=== PATIENT | female | born 1995 | race Caucasian/White ===

== ENCOUNTER 2018-03-20 20:42 | Emergency (ER) | payer OTHER ==
[2018-03-20 21:30] LABS: Urine Blood NEGATIVE (NEG); Urine Glucose NEGATIVE (NEG); Urine Protein 1+ (NEG); Urine Specific Gravity >1.030 (1.005-1.030)
[2018-03-20] MEDS ORDERED: NA CHLORIDE 0.9% 1,000 ML ONE (21:55)
[2018-03-20] MEDS ORDERED: ACETAMINOPHEN 500 MG TAB ONE (21:55)
[2018-03-20 22:04] LABS: Absolute Lymphocytes (CBC) 1.3 K/uL (0.7-4.9); Absolute Monocytes 0.5 K/uL (0.1-1.3); Absolute Neutrophil 11.4 K/uL (1.8-8.0); Basophils % 0.1 % (0-1.3); Eosinophils % 0.1 % (0-4.4); Hematocrit 36.5 % (36.0-45.0); Lymphocytes % 9.7 % (15.3-44.8); MCH 27.5 pg (27.0-35.0); MCV 82.7 fL (80-100); MPV 8.1 fL (7.6-11.3); Monocytes % 4.1 % (3.3-12.3); RBC Red Blood Cell Count 4.41 M/uL (3.86-4.86)
[2018-03-20 22:15] LABS: Bicarbonate 19 mEq/L (21-31); Glucose Level 94 mg/dL (65-120); Potassium 3.4 mEq/L (3.6-5.0); Sodium Level 136 mEq/L (135-145)
[2018-03-20 22:16] LABS: BUN Blood Urea Nitrogen 12 mg/dL (6-20)
[2018-03-20 23:22] LABS: Blood Morphology Comment NOT SEEN (NOT SEEN); Platelet Estimate ADEQ
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
--- NOTE | 2018-03-21 08:20 | RAD REPORT ---
EXAM DESCRIPTION: US - Transvaginal OB - 03/20/2018 11:05 pm CLINICAL HISTORY: Pelvic pain and cramping. COMPARISON: None. FINDINGS: A single gestational sac is seen within the uterus. Within the sac is a single pole with crown-rump length measuring 6 mm corresponding to 6 weeks 3 days gestational age. Cardiac activity is normal measuring 126 BPM. No unexpected findings. IMPRESSION: Single live early intrauterine gestation as detailed above.
== END 2018-03-21 00:14 | disposition home or self-care (01) ==
LOC: ER 20:42
DX: O20.0 Threatened abortion (principal); M54.5 Low back pain; Y04.8XXA Assault by other bodily force, initial encounter; Y93.89 Activity, other specified; Y92.89 Other specified places as the place of occurrence of the external cause
CPT/HCPCS: 36415; 76817; 80048; 81003; 81025; 85025; 86900; 86901; 96360; 96361; 99284; J7030

== ENCOUNTER 2018-05-18 22:35 | Emergency (ER) | payer OTHER ==
[2018-05-19 00:04] LABS: Absolute Lymphocytes (CBC) 2.3 K/uL (0.7-4.9); Absolute Monocytes 0.6 K/uL (0.1-1.3); Absolute Neutrophil 5.1 K/uL (1.8-8.0); Basophils % 0.5 % (0-1.3); Hematocrit 39.8 % (36.0-45.0); Lymphocytes % 27.7 % (15.3-44.8); MCH 28.4 pg (27.0-35.0); MCV 83.9 fL (80-100); Monocytes % 7.6 % (3.3-12.3); RBC Red Blood Cell Count 4.75 M/uL (3.86-4.86)
[2018-05-19 00:04] LABS: Urine Glucose TRACE (NEG); Urine Specific Gravity 1.015 (1.005-1.030)
[2018-05-19 00:05] LABS: Urine Blood 3+ (NEG); Urine Protein 3+ (NEG)
[2018-05-19] MEDS ORDERED: NA CHLORIDE 0.9% 1,000 ML ONE (00:08)
[2018-05-19 00:32] LABS: Urine Bacteria <20 /HPF (<20); Urine Culture Reflex Order REFLEXED; Urine RBC TNTC /HPF (NONE SEEN)
[2018-05-19] MEDS ORDERED: CEFTRIAXONE/SWI 1gm 1 GM/10 ML SYR ONE (00:35)
[2018-05-19] MEDS ORDERED: KETOROLAC 30 MG/ML INJ ONE (00:35)
[2018-05-19 00:42] LABS: BUN Blood Urea Nitrogen 12 mg/dL (7-18); Bicarbonate 28 mmol/L (21-32); Glucose Level 86 mg/dL (74-106); Potassium 3.5 mmol/L (3.5-5.1); Sodium Level 143 mmol/L (136-145)
--- NOTE | 2018-05-19 01:56 | ER ---
Nurse's Notes [facility] Name: Damaris Roque Age: 22 yrs Sex: Female : 1995 Arrival Date: 05/18/2018 Time: 22:37 Bed 27 Private MD: Diagnosis: Dysmenorrhea, unspecified Presentation: 05/18 22:45 Presenting complaint: Patient states: Pt reports she woke up last night with vaginal ea bleeding, reports she went through 8 tampons today. Stated she had an a couple of months ago and had not had a period since then. Transition of care: patient was not received from another setting of care. Onset of symptoms was May 18, 2018. Risk Assessment: Do you want to hurt yourself or someone else? Patient reports no desire to harm self or others. Initial Sepsis Screen: Does the patient meet any 2 criteria? No. Patient's initial sepsis screen is negative. Does the patient have a suspected source of infection? No. Patient's initial sepsis screen is negative. Care prior to arrival: None. 22:45 Method Of Arrival: Ambulatory ea 22:45 Acuity: JAYMIE 2 ea Triage Assessment: 23:20 General: Appears uncomfortable, Behavior is calm, cooperative, appropriate for age. ea Pain: Denies pain. : Reports vaginal bleeding that is heavy flow since yesterday. DETECTIVE [place]: 22:46 LMP 05/18/2018 ea 05/19 01:24 1 snw Historical: - Allergies: 05/18 23:19 No Known Allergies; ea - Home Meds: 23:19 None [Active]; ea - PMHx: 23:19 None; ea - PSHx: 23:19 c section; ea - Immunization history:: Adult Immunizations up to date. - Social history:: Smoking status: Patient uses tobacco products, denies chronic smoking, but will smoke occasionally. - Ebola Screening: : No symptoms or risks identified at this time. Screenin:21 Abuse screen: Denies threats or abuse. Nutritional screening: No deficits noted. ea Tuberculosis screening: No symptoms or risk factors identified. Fall Risk None identified. Assessment: 23:00 General: Appears uncomfortable, well groomed, well developed, well nourished, Behavior tl3 is calm, cooperative, appropriate for age. Pain: Complains of pain in abdomen. Neuro: Level of Consciousness is awake, alert, obeys commands, Oriented to person, place, time, situation, Appropriate for age. Cardiovascular: Patient's skin is warm and dry. Respiratory: Airway is patent Respiratory effort is even, unlabored, Respiratory pattern is regular, symmetrical. GI: Abdomen is round. : Urine is joe blood, Reports cramping, since yesterday vaginal bleeding that is bright red, heavy flow has went through eight pads/tampons today. : Reports pt reports seeing OB in March, had around that same time. EENT: No signs and/or symptoms were reported regarding the EENT system. Derm: No signs and/or symptoms reported regarding the dermatologic system. Musculoskeletal: No signs and/or symptoms reported regarding the musculoskeletal system. 05/19 01:04 Reassessment: Patient appears in no apparent distress at this time. No changes from tl3 previously documented assessment. Patient and/or family updated on plan of care and expected duration. Pain level reassessed. Patient is alert, oriented x 3, equal unlabored respirations, skin warm/dry/pink. 02:12 Reassessment: Patient appears in no apparent distress at this time. Patient and/or tl2 family updated on plan of care and expected duration. Pain level reassessed. Patient is alert, oriented x 3, equal unlabored respirations, skin warm/dry/pink. Pt verbalized understanding of discharge instructions, need for follow up and prescription usage. Vital Signs: 05/18 22:46 BP 113 / 90; Pulse 96; Resp 18; Temp 98.1(O); Pulse Ox 99% on R/A; Weight 61.23 kg; ea Height 5 ft. (152.40 cm); Pain 0/10; 23:00 BP 118 / 92; Pulse 95; Resp 18; Pulse Ox 98% on R/A; tl3 05/19 01:04 BP 89 / 65; Pulse 72; Resp 18; Pulse Ox 97% on R/A; tl3 01:39 BP 98 / 67 Supine; Pulse 87; tl2 01:39 BP 109 / 69 Sitting; Pulse 87; tl2 01:39 BP 109 / 68 Standing; Pulse 90; tl2 02:14 BP 91 / 57; Pulse 95; Resp 18; Pulse Ox 98% on R/A; tl2 05/18 22:46 Body Mass Index 26.37 (61.23 kg, 152.40 cm) ED Course: 05/18 22:37 Patient arrived in ED. am2 22:45 Arm band placed on right wrist. Patient placed in an exam room, on a stretcher, on ea pulse oximetry. 22:46 Patient has correct armband on for positive identification. Bed in low position. Call ea light in reach. Side rails up X2. 23:00 Pulse ox on. NIBP on. Door closed. Noise minimized. Lights dimmed. Warm blanket given. tl3 23:00 No provider procedures requiring assistance completed. Initial lab(s) drawn, by wy, tl3 sent to lab. Urine collected: clean catch specimen, joe blood. Inserted saline lock: 22 gauge in right antecubital area, using aseptic technique. Blood collected. 23:17 Sidra Ramirez, [facility] is Primary Nurse. tl3 23:19 Triage completed. ea 23:35 Sanjana Piedra FNP-C is [facility]. snw 23:35 Raciel Ortez MD is Attending Physician. snw 05/19 02:14 IV discontinued, intact, bleeding controlled, No redness/swelling at site. Pressure tl2 dressing applied. Administered Medications: 00:03 Drug: NS 0.9% 1000 ml Route: IV; Rate: 1 bolus; Site: right antecubital; Delivery: tl3 Primary tubing; 01:11 Follow up: IV Status: Completed infusion; IV Intake: 1000ml tl3 00:36 Drug: TORadol 30 mg Route: IVP; Infused Over: 3 mins; Site: right antecubital; tl3 01:05 Follow up: Response: Pain is decreased tl3 00:37 Drug: Rocephin 1 grams Route: IV; Rate: calculated rate; Site: right antecubital; tl3 Delivery: Primary tubing; 01:06 Follow up: IV Status: Completed infusion; IV Intake: 20ml tl3 Intake: 01:06 IV: 20ml; Total: 20ml. tl3 01:11 IV: 1000ml; Total: 1020ml. tl3 Outcome: 01:55 Discharge ordered by . snw 02:14 Discharged to home ambulatory. tl2 02:14 Condition: stable 02:14 Discharge instructions given to patient, Instructed on discharge instructions, follow up and referral plans. medication usage, Demonstrated understanding of instructions, follow-up care, medications, Prescriptions given X 2. 02:15 Patient left the ED. tl2 Addendum: 05/22/2018 10:55 Addendum: Culture Results: Positive urine culture. Phone call Attempt #1 No answer, not s s a working number Certified letter sent to listed address for patient. Signatures: Sanjana Piedra, TOWER EQUIPMENT INSTALLER-C TOWER EQUIPMENT INSTALLER-Csnw Rula Farooq RN RN Ibeth Grady RN RN tl2 Yamilet Tanner Elena, RN RN ea Lowrey, Tammy, RN RN tl3 Corrections: (The following items were deleted from the chart) 05/19 02:14 02:12 Reassessment: Patient appears in no apparent distress at this time. Patient tl2 and/or family updated on plan of care and expected duration. Pain level reassessed. Patient is alert, oriented x 3, equal unlabored respirations, skin warm/dry/pink. tl2
--- NOTE | 2018-05-19 01:56 | EDPHYS ---
Physician Documentation [facility] Name: Damaris Roque Age: 22 yrs Sex: Female : 1995 Arrival Date: 05/18/2018 Time: 22:37 Bed 27 Private MD: TAWANDA Physician Raciel Ortez HPI: 05/19 01:24 This 22 yrs old Female presents to ER via Ambulatory with complaints of snw Vaginal Bleeding. 01:24 The patient presents with vaginal bleeding that is heavy. Onset: The symptoms/episode snw began/occurred suddenly, 2 day(s) ago, and became persistent. Modifying factors: The symptoms are alleviated by nothing. Associated signs and symptoms: The patient has no apparent associated signs or symptoms. Severity of symptoms: At their worst the symptoms were moderate, severe. The patient has not experienced similar symptoms in the past. recent , 1st period since. 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 - Social history:: Smoking status: Patient uses tobacco products, denies chronic smoking, but will smoke occasionally. - Ebola Screening: : No symptoms or risks identified at this time. ROS: 05/19 01:24 Constitutional: Negative for fever, chills, and weight loss, Eyes: Negative for injury, snw pain, redness, and discharge, ENT: Negative for injury, pain, and discharge, Neck: Negative for injury, pain, and swelling, Cardiovascular: Negative for chest pain, palpitations, and edema, Respiratory: Negative for shortness of breath, cough, wheezing, and pleuritic chest pain, Abdomen/GI: Negative for abdominal pain, nausea, vomiting, diarrhea, and constipation, Back: Negative for injury and pain, MS/Extremity: Negative for injury and deformity, Skin: Negative for injury, rash, and discoloration, Neuro: Negative for headache, weakness, numbness, tingling, and seizure. : Positive for vaginal bleeding. Exam: 01:23 Constitutional: This is a well developed, well nourished patient who is awake, alert, snw and in no acute distress. Head/Face: Normocephalic, atraumatic. Eyes: Pupils equal round and reactive to light, extra-ocular motions intact. Lids and lashes normal. Conjunctiva and sclera are non-icteric and not injected. Cornea within normal limits. Periorbital areas with no swelling, redness, or edema. ENT: Nares patent. No nasal discharge, no septal abnormalities noted. Tympanic membranes are normal and external auditory canals are clear. Oropharynx with no redness, swelling, or masses, exudates, or evidence of obstruction, uvula midline. Mucous membranes moist. Neck: Trachea midline, no thyromegaly or masses palpated, and no cervical lymphadenopathy. Supple, full range of motion without nuchal rigidity, or vertebral point tenderness. No Meningismus. Chest/axilla: Normal chest wall appearance and motion. Nontender with no deformity. No lesions are appreciated. Cardiovascular: Regular rate and rhythm with a normal S1 and S2. No gallops, murmurs, or rubs. Normal PMI, no JVD. No pulse deficits. Respiratory: Lungs have equal breath sounds bilaterally, clear to auscultation and percussion. No rales, rhonchi or wheezes noted. No increased work of breathing, no retractions or nasal flaring. Abdomen/GI: Soft, non-tender, with normal bowel sounds. No distension or tympany. No guarding or rebound. No evidence of tenderness throughout. Back: No spinal tenderness. No costovertebral tenderness. Full range of motion. Skin: Warm, dry with normal turgor. Normal color with no rashes, no lesions, and no evidence of cellulitis. MS/ Extremity: Pulses equal, no cyanosis. Neurovascular intact. Full, normal range of motion. Neuro: Awake and alert, GCS 15, oriented to person, place, time, and situation. Cranial nerves II-XII grossly intact. Motor strength 5/5 in all extremities. Sensory grossly intact. Cerebellar exam normal. Normal gait. Vital Signs: 05/18 22:46 BP 113 / 90; Pulse 96; Resp 18; Temp 98.1(O); Pulse Ox 99% on R/A; Weight 61.23 kg; ea Height 5 ft. (152.40 cm); Pain 0/10; 23:00 BP 118 / 92; Pulse 95; Resp 18; Pulse Ox 98% on R/A; tl3 07 01:04 BP 89 / 65; Pulse 72; Resp 18; Pulse Ox 97% on R/A; tl3 01:39 BP 98 / 67 Supine; Pulse 87; tl2 01:39 BP 109 / 69 Sitting; Pulse 87; tl2 01:39 BP 109 / 68 Standing; Pulse 90; tl2 02:14 BP 91 / 57; Pulse 95; Resp 18; Pulse Ox 98% on R/A; tl2 05/18 22:46 Body Mass Index 26.37 (61.23 kg, 152.40 cm) ea MDM: 05/18 23:44 Patient medically screened. [facility] 05/19 02:07 Data reviewed: vital signs, nurses notes. Data interpreted: Pulse oximetry: on room air snw is 97 %. Interpretation: normal. Counseling: I had a detailed discussion with the patient and/or guardian regarding: the historical points, exam findings, and any diagnostic results supporting the discharge/admit diagnosis, lab results, the need for outpatient follow up, to return to the emergency department if symptoms worsen or persist or if there are any questions or concerns that arise at home. Special discussion: Based on the history and exam findings, there is no indication for further emergent testing or inpatient evaluation. I discussed with the patient/guardian the need to see the OB Gyne specialist for further evaluation of the symptoms. I discussed with the patient/guardian the need to see the primary care provider for further evaluation of the symptoms. 05/18 23:35 Order name: UA MICROSCOPIC; Complete Time: 00:50 3 05/18 23:36 Order name: Abo/rh Typing; Complete Time: 00:24 snw 05/18 23:36 Order name: Basic Metabolic Panel; Complete Time: 00:50 snw 05/18 23:36 Order name: CBC with Diff; Complete Time: 00:21 snw 05/18 23:45 Order name: Urine Dipstick--Ancillary (enter results) ms 05/18 23:45 Order name: Urine --Ancillary (enter results) ms 05/18 23:36 Order name: Urine Test (obtain specimen); Complete Time: 23:52 snw 05/18 23:36 Order name: IV Saline Lock; Complete Time: 23:52 snw 05/18 23:36 Order name: Labs collected and sent; Complete Time: 23:52 snw 05/18 23:36 Order name: NPO; Complete Time: 23:52 snw 05/19 00:32 Order name: Urine Culture [facility] 05/18 23:36 Order name: Urine Dipstick-Ancillary (obtain specimen); Complete Time: 23:52 snw 05/19 01:22 Order name: Orthostatics; Complete Time: 01:40 snw Administered Medications: 00:03 Drug: NS 0.9% 1000 ml Route: IV; Rate: 1 bolus; Site: right antecubital; Delivery: tl3 Primary tubing; 01:11 Follow up: IV Status: Completed infusion; IV Intake: 1000ml tl3 00:36 Drug: TORadol 30 mg Route: IVP; Infused Over: 3 mins; Site: right antecubital; tl3 01:05 Follow up: Response: Pain is decreased tl3 00:37 Drug: Rocephin 1 grams Route: IV; Rate: calculated rate; Site: right antecubital; tl3 Delivery: Primary tubing; 01:06 Follow up: IV Status: Completed infusion; IV Intake: 20ml tl3 Disposition: 08:25 Co-signature as Attending Physician, Raciel Ortez MD I agree with the assessment and carol plan of care. Disposition: 05/19/18 01:55 Discharged to Home. Impression: Dysmenorrhea, unspecified. - Condition is Stable. - Discharge Instructions: Dysmenorrhea. - Prescriptions for Vitamin 27- 0.8 mg Oral Tablet - take 1 tablet by ORAL route once daily; 60 tablet. Diclofenac Sodium 75 mg Oral Tablet Sustained Release - take 1 tablet by ORAL route 2 times per day; 30 tablet. - Medication Reconciliation Form, Thank You Letter, Antibiotic Education, Prescription Opioid Use, Work release form form. - Follow up: Emergency Department; When: As needed; Reason: Worsening of condition. Follow up: Private Physician; When: 1 - 2 days; Reason: Recheck today's complaints, Continuance of care, Re-evaluation by your physician. Signatures: Dispatcher [employer] Raciel Hillman MD MD cha Therrien, Shelly, AUDIT OFFICER-C AUDIT OFFICER-Csnw Ibeth Harris RN RN tl2 Chyna Correia RN Sidra Mata ea, RN RN tl3 Corrections: (The following items were deleted from the chart) 02:15 01:55 05/19/2018 01:55 Discharged to Home. Impression: Dysmenorrhea, unspecified. tl2 Condition is Stable. Forms are Medication Reconciliation Form, Thank You Letter, Antibiotic Education, Prescription Opioid Use. Follow up: Emergency Department; When: As needed; Reason: Worsening of condition. Follow up: Private Physician; When: 1 - 2 days; Reason: Recheck today's complaints, Continuance of care, Re-evaluation by your physician. snw
== END 2018-05-19 02:15 | disposition home or self-care (01) ==
LOC: ER 22:35
DX: N94.6 Dysmenorrhea, unspecified (principal); Z72.0 Tobacco use
CPT/HCPCS: 36415; 80048; 81003; 81015; 81025; 85025; 86900; 86901; 87077; 87086; 87088; 87186; 96361; 96365; 96375; 99284; J0696; J7030

== ENCOUNTER 2018-10-30 20:02 | Emergency (ER) | payer OTHER, SELFPAY ==
[2018-10-30] MEDS ORDERED: IBUPROFEN 400 MG TAB ONE (20:41)
[2018-10-30] MEDS ORDERED: IBUPROFEN 200 MG TAB PO ONE (20:41)
[2018-10-30 21:53] LABS: Urine Blood NEGATIVE (NEG); Urine Glucose NEGATIVE (NEG); Urine Protein NEGATIVE (NEG)
[2018-10-30 22:14] LABS: Urine Bacteria <20 /HPF (<20); Urine RBC <5 /HPF (NONE SEEN)
[2018-10-30 22:15] LABS: Urine Culture Reflex Order NOT NEEDED
[2018-10-30] MEDS ORDERED: NA CHLORIDE 0.9% 1,000 ML ONE (22:49)
[2018-10-30] MEDS ORDERED: OSELTAMIVIR 75 MG CAP ONE (22:49)
[2018-10-30] MEDS ORDERED: KETOROLAC 30 MG/ML INJ ONE (22:49)
--- NOTE | 2018-10-30 23:32 | EDPHYS ---
Physician Documentation [facility] Name: Damaris Roque Age: 22 yrs Sex: Female : 1995 Arrival Date: 10/30/2018 Time: 20:05 Bed 18 Private MD: ED Physician Dmitry Coulter HPI: 10/30 23:36 This 22 yrs old Female presents to ER via Ambulatory with complaints of snw Chills body ache. 23:36 Onset: The symptoms/episode began/occurred suddenly, last night. Associated signs and snw symptoms: Pertinent positives: fever, Pertinent negatives: chest pain, congestion, constipation, cough, diarrhea, dysuria. Modifying factors: The patient symptoms are alleviated by nothing. The patient has not experienced similar symptoms in the past. The patient has not recently seen a physician. 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 - Social history:: Smoking status: Patient/guardian denies using tobacco. - Ebola Screening: : No symptoms or risks identified at this time. ROS: 23:34 Eyes: Negative for injury, pain, redness, and discharge, ENT: Negative for injury, snw pain, and discharge, Neck: Negative for injury, pain, and swelling, Cardiovascular: Negative for chest pain, palpitations, and edema, Respiratory: Negative for shortness of breath, cough, wheezing, and pleuritic chest pain, Abdomen/GI: Negative for abdominal pain, nausea, vomiting, diarrhea, and constipation, Back: Negative for injury and pain, : Negative for injury, bleeding, discharge, and swelling, MS/Extremity: Negative for injury and deformity, Skin: Negative for injury, rash, and discoloration, Neuro: Negative for headache, weakness, numbness, tingling, and seizure. 23:34 Constitutional: Positive for body aches, chills, fatigue, fever, malaise, poor PO intake. Exam: 23:34 Head/Face: Normocephalic, atraumatic. Eyes: Pupils equal round and reactive to light, snw extra-ocular motions intact. Lids and lashes normal. Conjunctiva and sclera are non-icteric and not injected. Cornea within normal limits. Periorbital areas with no swelling, redness, or edema. ENT: Nares patent. No nasal discharge, no septal abnormalities noted. Tympanic membranes are normal and external auditory canals are clear. Oropharynx with no redness, swelling, or masses, exudates, or evidence of obstruction, uvula midline. Mucous membranes moist. Neck: Trachea midline, no thyromegaly or masses palpated, and no cervical lymphadenopathy. Supple, full range of motion without nuchal rigidity, or vertebral point tenderness. No Meningismus. Chest/axilla: Normal chest wall appearance and motion. Nontender with no deformity. No lesions are appreciated. 23:34 Respiratory: Lungs have equal breath sounds bilaterally, clear to auscultation and percussion. No rales, rhonchi or wheezes noted. No increased work of breathing, no retractions or nasal flaring. Abdomen/GI: Soft, non-tender, with normal bowel sounds. No distension or tympany. No guarding or rebound. No evidence of tenderness throughout. Back: No spinal tenderness. No costovertebral tenderness. Full range of motion. Skin: Warm, dry with normal turgor. Normal color with no rashes, no lesions, and no evidence of cellulitis. MS/ Extremity: Pulses equal, no cyanosis. Neurovascular intact. Full, normal range of motion. Neuro: Awake and alert, GCS 15, oriented to person, place, time, and situation. Cranial nerves II-XII grossly intact. Motor strength 5/5 in all extremities. Sensory grossly intact. Cerebellar exam normal. Normal gait. Psych: Awake, alert, with orientation to person, place and time. Behavior, mood, and affect are within normal limits. 23:34 Constitutional: The patient appears awake, febrile, frail, listless, obviously ill, uncomfortable. 23:34 Cardiovascular: Rate: tachycardic, Rhythm: regular, Heart sounds: normal. Vital Signs: 20:26 BP 112 / 73; Pulse 148; Resp 18; Temp 103.0; Pulse Ox 100% on R/A; Weight 61.23 kg; la1 Height 5 ft. 0 in. (152.40 cm); 22:00 BP 99 / 72; Pulse 110; Resp 19; Temp 99.1; Pulse Ox 98% ; rr5 23:45 BP 97 / 60; Pulse 100; Resp 19; Temp 98.6; Pulse Ox 100% ; rr5 20:26 Body Mass Index 26.37 (61.23 kg, 152.40 cm) la1 MDM: 21:24 Patient medically screened. snw 23:36 Data reviewed: vital signs, nurses notes. Data interpreted: Pulse oximetry: on room air snw is 98 %. Interpretation: normal. Counseling: I had a detailed discussion with the patient and/or guardian regarding: the historical points, exam findings, and any diagnostic results supporting the discharge/admit diagnosis, lab results, the need for outpatient follow up, to return to the emergency department if symptoms worsen or persist or if there are any questions or concerns that arise at home. Special discussion: Based on the history and exam findings, there is no indication for further emergent testing or inpatient evaluation. I discussed with the patient/guardian the need to see the primary care provider for further evaluation of the symptoms. 10/30 20:27 Order name: Strep; Complete Time: 21:06 la1 10/30 20:27 Order name: Flu; Complete Time: 21:15 la1 10/30 21:03 Order name: Throat Culture EDMS 10/30 21:15 Order name: Urine Culture snw 10/30 21:15 Order name: Urine Microscopic Only; Complete Time: 22:25 snw 10/30 21:50 Order name: Urine Dipstick--Ancillary (enter results); Complete Time: 22:25 mw2 10/30 21:15 Order name: Urine Test (obtain specimen); Complete Time: 22:18 snw 10/30 21:15 Order name: Urine Dipstick-Ancillary (obtain specimen); Complete Time: 22:18 snw 10/30 21:50 Order name: Urine --Ancillary (enter results); Complete Time: 22:25 mw2 Administered Medications: 20:33 Drug: Motrin 600 mg Route: PO; la1 22:45 Follow up: Response: Marked relief of symptoms rr5 22:45 Drug: NS 0.9% 1000 ml Route: IV; Rate: 1 bolus; Site: right antecubital; cc3 23:48 Follow up: Response: No adverse reaction; IV Status: Completed infusion; IV Intake: rr5 1000ml 22:45 Drug: Tamiflu 75 mg Route: PO; rr5 23:49 Follow up: Response: No adverse reaction rr5 22:54 Drug: TORadol 30 mg Route: IVP; Site: right antecubital; rr5 23:49 Follow up: Response: No adverse reaction rr5 Disposition: 10/31 02:27 Co-signature as Attending Physician, Dmitry Coulter MD. pkl Disposition: 10/30/18 23:30 Discharged to Home. Impression: Influenza due to unidentified influenza virus. - Condition is Stable. - Discharge Instructions: Fever, Adult, Influenza, Adult, Rehydration, Adult. - Prescriptions for Zofran 4 mg Oral Tablet - take 1 tablet by ORAL route every 12 hours As needed; 20 tablet. Diclofenac Sodium 75 mg Oral Tablet Sustained Release - take 1 tablet by ORAL route 2 times per day; 30 tablet. Tamiflu 75 mg Oral Capsule - take 1 tablet by ORAL route every 12 hours for 5 days; 10 tablet. - Work release form, Medication Reconciliation Form, Thank You Letter, Antibiotic Education, Prescription Opioid Use form. - Follow up: Private Physician; When: 2 - 3 days; Reason: Recheck today's complaints, Continuance of care, Re-evaluation by your physician. Follow up: Emergency Department; When: As needed; Reason: Worsening of condition. Signatures: Dispatcher [employer] EDDmitry Nava MD MD pkl Sanjana Piedra, CRM ARCHITECT-C CRM ARCHITECT-Csnw Dominga Pompa RN Dread Zuniga RN RN la1 Shruthi Cornelius 3 Rao Edwards RN RN rr5 Corrections: (The following items were deleted from the chart) 10/30 23:57 23:30 10/30/2018 23:30 Discharged to Home. Impression: Influenza due to unidentified rr5 influenza virus. Condition is Stable. Forms are Medication Reconciliation Form, Thank You Letter, Antibiotic Education, Prescription Opioid Use. Follow up: Private Physician; When: 2 - 3 days; Reason: Recheck today's complaints, Continuance of care, Re-evaluation by your physician. Follow up: Emergency Department; When: As needed; Reason: Worsening of condition. snw
--- NOTE | 2018-10-30 23:32 | ER ---
Nurse's Notes [facility] Name: Damaris Roque Age: 22 yrs Sex: Female : 1995 Arrival Date: 10/30/2018 Time: 20:05 Bed 18 Private MD: Diagnosis: Influenza due to unidentified influenza virus Presentation: 10/30 20:25 Presenting complaint:. Transition of care: patient was not received from another [facility] setting of care. Onset of symptoms was October 30, 2018. Risk Assessment: Do you want to hurt yourself or someone else? Patient reports no desire to harm self or others. Initial Sepsis Screen:. Care prior to arrival: None. 20:25 Method Of Arrival: Ambulatory la1 20:25 Acuity: JAYMIE 3 la1 22:00 Initial Sepsis Screen: Does the patient meet any 2 criteria? No. Patient's initial rr5 sepsis screen is negative. Does the patient have a suspected source of infection? No. Patient's initial sepsis screen is negative. 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 - Social history:: Smoking status: Patient/guardian denies using tobacco. - Ebola Screening: : No symptoms or risks identified at this time. Screenin:00 Abuse screen: Denies threats or abuse. Denies injuries from another. Nutritional rr5 screening: No deficits noted. Tuberculosis screening: No symptoms or risk factors identified. Fall Risk None identified. Assessment: 21:00 General: Appears in no apparent distress. uncomfortable, Behavior is calm, cooperative, rr5 appropriate for age. Pain: Complains of pain in body Pain does not radiate. Pain currently is 7 out of 10 on a pain scale. Quality of pain is described as aching, Pain began gradually, Is intermittent. 21:00 Neuro: Level of Consciousness is awake, alert, obeys commands, Oriented to person, rr5 place, time, situation. Cardiovascular: Capillary refill < 3 seconds Patient's skin is warm and dry. Respiratory: Airway is patent Respiratory effort is even, unlabored, Respiratory pattern is regular, symmetrical. Respiratory:. GI: Abdomen is flat. : No signs and/or symptoms were reported regarding the genitourinary system. EENT: No signs and/or symptoms were reported regarding the EENT system. Derm: Skin temperature is warm. Musculoskeletal: Capillary refill < 3 seconds, Range of motion: intact in all extremities, Reports pain all over the body. 22:00 Reassessment: Patient appears in no apparent distress at this time. no complaints made. rr5 asleep on bed awaiting for report Patient states symptoms have improved. 23:39 Reassessment: Patient appears in no apparent distress at this time. Patient and/or rr5 family updated on plan of care and expected duration. Pain level reassessed. discharge instruction and prescription explained without complaints made. vitally stable. Patient states feeling better. Patient states symptoms have improved. Vital Signs: 20:26 BP 112 / 73; Pulse 148; Resp 18; Temp 103.0; Pulse Ox 100% on R/A; Weight 61.23 kg; la1 Height 5 ft. 0 in. (152.40 cm); 22:00 BP 99 / 72; Pulse 110; Resp 19; Temp 99.1; Pulse Ox 98% ; rr5 23:45 BP 97 / 60; Pulse 100; Resp 19; Temp 98.6; Pulse Ox 100% ; rr5 20:26 Body Mass Index 26.37 (61.23 kg, 152.40 cm) la1 ED Course: 20:05 Patient arrived in ED. am2 20:26 Triage completed. la1 20:27 Arm band placed on left wrist. la1 20:59 [facility]ied[facility]C [facility] snw 20:59 Dmitry Coulter MD is Attending Physician. snw 21:00 Patient has correct armband on for positive identification. Placed in gown. Bed in low rr5 position. Call light in reach. Side rails up X2. custom frame assembler on. Pulse ox on. NIBP on. 21:38 Rao Edwards RN is Primary Nurse. rr5 22:45 Inserted saline lock: 20 gauge in right antecubital area, using aseptic technique. cc3 23:47 No provider procedures requiring assistance completed. IV discontinued, intact, rr5 bleeding controlled, No redness/swelling at site. Pressure dressing applied. Administered Medications: 20:33 Drug: Motrin 600 mg Route: PO; la1 22:45 Follow up: Response: Marked relief of symptoms rr5 22:45 Drug: NS 0.9% 1000 ml Route: IV; Rate: 1 bolus; Site: right antecubital; cc3 23:48 Follow up: Response: No adverse reaction; IV Status: Completed infusion; IV Intake: rr5 1000ml 22:45 Drug: Tamiflu 75 mg Route: PO; rr5 23:49 Follow up: Response: No adverse reaction rr5 22:54 Drug: TORadol 30 mg Route: IVP; Site: right antecubital; rr5 23:49 Follow up: Response: No adverse reaction rr5 Intake: 23:48 IV: 1000ml; Total: 1000ml. rr5 Outcome: 23:30 Discharge ordered by . snw 23:47 Discharged to home ambulatory, with family. rr5 23:47 Condition: stable 23:47 Discharge instructions given to patient, family, Instructed on discharge instructions, follow up and referral plans. medication usage, Demonstrated understanding of instructions, follow-up care, medications, Prescriptions given X 3. 23:57 Patient left the ED. rr5 Signatures: Sanjana Piedra, QUALITY CONTROL INSPECTOR HEADING-C QUALITY CONTROL INSPECTOR HEADING-Csnw Dread Crocker RN RN la1 Yamilet Tanner amShruthi Valles cc3 Rao Edwards RN RN rr5
== END 2018-10-30 23:57 | disposition home or self-care (01) ==
LOC: ER 20:02
DX: J11.1 Influenza due to unidentified influenza virus with other respiratory manifestations (principal)
CPT/HCPCS: 81003; 81015; 81025; 87070; 87081; 87086; 87088; 87804; 96361; 96374; 99284; J7030

== ENCOUNTER 2019-11-10 07:14 | Emergency (ER) | payer SELFPAY ==
--- NOTE | 2019-11-10 08:16 | ER ---
Nurse's Notes [facility] Name: Damaris Roque Age: 23 yrs Sex: Female : 1995 Arrival Date: 11/10/2019 Time: 07:16 Bed 27 Private MD: Diagnosis: Cough;Myalgia;Acute nasopharyngitis [common cold] Presentation: 11/10 07:23 Presenting complaint: Patient states: cough X 4 days, body aches, cold sweats this iw morning. Transition of care: patient was not received from another setting of care. Onset of symptoms was November 06, 2019. Risk Assessment: Do you want to hurt yourself or someone else? Patient reports no desire to harm self or others. Initial Sepsis Screen: Does the patient meet any 2 criteria? No. Patient's initial sepsis screen is negative. Does the patient have a suspected source of infection? No. Patient's initial sepsis screen is negative. Care prior to arrival: None. 07:23 Method Of Arrival: Ambulatory iw 07:23 Acuity: JAYMIE 4 iw Triage Assessment: 08:21 General: Appears in no apparent distress. Behavior is calm. 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 - Social history:: Smoking status: Patient uses tobacco products, denies chronic smoking, but will smoke occasionally. - Ebola Screening: : Patient negative for fever greater than or equal to 101.5 degrees Fahrenheit, and additional compatible Ebola Virus Disease symptoms Patient denies exposure to infectious person Patient denies travel to an Ebola-affected area in the 21 days before illness onset No symptoms or risks identified at this time. Screenin:20 Abuse screen: Denies threats or abuse. Denies injuries from another. Nutritional iw screening: No deficits noted. Tuberculosis screening: No symptoms or risk factors identified. Fall Risk None identified. Assessment: 07:40 General: Appears in no apparent distress. comfortable, Behavior is calm, cooperative. iw General: Reports fever for feeling ill for. Pain: Complains of pain in body aches. Neuro: Level of Consciousness is awake, alert, obeys commands, Oriented to person, place, time, situation, Moves all extremities. Cardiovascular: Patient's skin is warm and dry. Respiratory: Respiratory effort is even, unlabored, Respiratory pattern is regular. Vital Signs: 07:23 BP 108 / 74; Pulse 99; Resp 16 S; Temp 98.0(TE); Pulse Ox 99% on R/A; Weight 60.78 kg; iw Height 5 ft. (152.40 cm); 07:23 Body Mass Index 26.17 (60.78 kg, 152.40 cm) iw ED Course: 07:16 Patient arrived in ED. rg4 07:23 Triage completed. iw 07:23 Arm band placed on. iw 07:31 Dread Crocker FNP-C is [facility]. la1 07:31 Cliff Mccord MD is Attending Physician. la1 07:50 Patient has correct armband on for positive identification. iw 08:17 Helen Randall, RN is Primary Nurse. iw 08:21 No provider procedures requiring assistance completed. Patient did not have IV access iw during this emergency room visit. Administered Medications: No medications were administered Outcome: 08:15 Discharge ordered by . la1 08:21 Discharged to home ambulatory, with family. iw 08:21 Condition: good 08:21 Discharge instructions given to patient, family, Instructed on discharge instructions, follow up and referral plans. medication usage, Demonstrated understanding of instructions, follow-up care, medications, Prescriptions given X 1. 08:22 Patient left the ED. iw Signatures: Helen Randall, RN RN iw Dread Crocker FNP-C FNP-[facility] Tisha Goldstein rg4
--- NOTE | 2019-11-10 08:17 | EDPHYS ---
Physician Documentation [facility] Name: Damaris Roque Age: 23 yrs Sex: Female : 1995 Arrival Date: 11/10/2019 Time: 07:16 Bed 27 Private MD: ED Physician Cliff Mccord HPI: 11/10 07:35 This 23 yrs old Female presents to ER via Ambulatory with complaints of la1 Cough, Body Aches. 07:35 The patient or guardian reports cough, sore throat. Onset: The symptoms/episode la1 began/occurred 4 day(s) ago. Severity of symptoms: At their worst the symptoms were mild. Modifying factors: The symptoms are alleviated by nothing, the symptoms are aggravated by nothing. Associated signs and symptoms: Pertinent positives: diarrhea, sore throat, Pertinent negatives: fever, nausea, rhinorrhea. The patient has not experienced similar symptoms in the past. SO sick with similar sx recently. 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 - Social history:: Smoking status: Patient uses tobacco products, denies chronic smoking, but will smoke occasionally. - Ebola Screening: : Patient negative for fever greater than or equal to 101.5 degrees Fahrenheit, and additional compatible Ebola Virus Disease symptoms Patient denies exposure to infectious person Patient denies travel to an Ebola-affected area in the 21 days before illness onset No symptoms or risks identified at this time. ROS: 07:36 Constitutional: + chills Eyes: Negative for injury, pain, redness, and discharge. la1 07:36 Neck: Negative for injury, pain, and swelling, Cardiovascular: Negative for chest pain, palpitations, and edema. 07:36 Abdomen/GI: Negative for abdominal pain, nausea, vomiting, diarrhea, and constipation, Back: Negative for injury and pain, MS/Extremity: Negative for injury and deformity, Skin: Negative for injury, rash, and discoloration, Neuro: Negative for headache, weakness, numbness, tingling, and seizure. 07:36 ENT: Positive for rhinorrhea, sinus congestion, sore throat. 07:36 Respiratory: Positive for cough. Exam: 07:37 Constitutional: This is a well developed, well nourished patient who is awake, alert, la1 and in no acute distress. Head/Face: Normocephalic, atraumatic. Eyes: Pupils equal round and reactive to light, extra-ocular motions intact. Periorbital areas with no swelling, redness, or edema. 07:37 Chest/axilla: Normal chest wall appearance and motion. Nontender with no deformity. No lesions are appreciated. Cardiovascular: Regular rate and rhythm with a normal S1 and S2. No gallops, murmurs, or rubs. Normal PMI, no JVD. No pulse deficits. Respiratory: Lungs have equal breath sounds bilaterally, clear to auscultation No rales, rhonchi or wheezes noted. No increased work of breathing, no retractions or nasal flaring. Back: No spinal tenderness. No costovertebral tenderness. Full range of motion. Skin: Warm, dry with normal turgor. Normal color with no rashes, no lesions, and no evidence of cellulitis. MS/ Extremity: Pulses equal, no cyanosis. Neurovascular intact. Full, normal range of motion. 07:37 ENT: External ear(s): are unremarkable, Ear canal(s): are normal, TM's: are normal, Mouth: is normal, Posterior pharynx: Tonsils: bilaterally enlarged, no erythema, no exudate, no ulcerations. 07:37 Neck: Lymph nodes: lymphadenopathy is appreciated, anterior cervical nodes. Vital Signs: 07:23 BP 108 / 74; Pulse 99; Resp 16 S; Temp 98.0(TE); Pulse Ox 99% on R/A; Weight 60.78 kg; iw Height 5 ft. (152.40 cm); 07:23 Body Mass Index 26.17 (60.78 kg, 152.40 cm) iw MDM: 07:31 Patient medically screened. la1 08:13 Differential Diagnosis: Bronchitis Influenza Upper Respiratory Infection Sinusitis la1 Pharyngitis Otitis Media Allergic Rhinitis. Data reviewed: vital signs, nurses notes, lab test result(s), I have discussed the patient's presentation/case with the attending Emergency Department Physician; and as a result, I will discharge patient. Data interpreted: Pulse oximetry: on room air is 99 %. Interpretation: normal. Counseling: I had a detailed discussion with the patient and/or guardian regarding: the historical points, exam findings, and any diagnostic results supporting the discharge/admit diagnosis, lab results, the need for outpatient follow up, a family practitioner, to return to the emergency department if symptoms worsen or persist or if there are any questions or concerns that arise at home. Special discussion: I discussed with the patient/guardian that the patient's current presentation does not indicate dosing of antibiotics. They should follow-up with their primary care provider and return if the symptoms persist or progress. 11/10 07:35 Order name: Strep la1 11/10 07:35 Order name: Flu la1 11/10 07:55 Order name: Group A Streptococcus Rapid Sc EDMS 11/10 08:08 Order name: Influenza Screen (A EDMS Administered Medications: No medications were administered Disposition: 11:30 Co-signature as Attending Physician, Cliff Mccord MD I agree with the assessment and kdr plan of care. Disposition: 11/10/19 08:15 Discharged to Home. Impression: Cough, Myalgia, Acute nasopharyngitis [common cold]. - Condition is Stable. - Discharge Instructions: Viral Respiratory Infection, Cough, Adult. - Prescriptions for brompheniramine- pseudoeph-DM 4-20-20 mg/5 mL Oral liquid - take 10 milliliter by ORAL route every 6 hours; 1 bottle. - Work release form, Medication Reconciliation Form, Thank You Letter form. - Follow up: Private Physician; When: 2 - 3 days; Reason: Recheck today's complaints, Re-evaluation by your physician. Follow up: Emergency Department; When: As needed; Reason: Trouble breathing, Worsening of condition. - Problem is new. - Symptoms are unchanged. Signatures: Dispatcher [facility] Cliff Mccord MD MD kdr Williams, Irene, RN RN Dread Pearce FNP-C [employer]-Cla1 Corrections: (The following items were deleted from the chart) 08:22 08:15 11/10/2019 08:15 Discharged to Home. Impression: Cough; Myalgia; Acute iw nasopharyngitis [common cold]. Condition is Stable. Forms are Medication Reconciliation Form, Thank You Letter, Antibiotic Education, Prescription Opioid Use. Follow up: Private Physician; When: 2 - 3 days; Reason: Recheck today's complaints, Re-evaluation by your physician. Follow up: Emergency Department; When: As needed; Reason: Trouble breathing, Worsening of condition. Problem is new. Symptoms are unchanged. la1
[2019-11-10 08:55] VITALS: BP 108/74; TEMP 98; O2SAT 99
== END 2019-11-10 08:22 | disposition home or self-care (01) ==
LOC: ER 07:14
DX: J00 Acute nasopharyngitis [common cold] (principal); M79.10 Myalgia, unspecified site; Z72.0 Tobacco use
CPT/HCPCS: 87070; 87081; 87804; 99282

== ENCOUNTER 2020-02-10 06:41 | Emergency (ER) | payer SELFPAY ==
--- NOTE | 2020-02-10 07:01 | ER ---
Nurse's Notes [facility] Name: Damaris Roque Age: 24 yrs Sex: Female : 1995 Arrival Date: 02/10/2020 Time: 06:41 Bed 7 Private MD: Diagnosis: Acute upper respiratory infection, unspecified;Cough Presentation: 02/09 06:53 Chief complaint: Patient states: having dry cough stuffy nose started 2 days ago. rr5 denies fever, body ache and mild SOB reported. Coronavirus screen: Patient reports a cough. Patient reports shortness of breath or difficulty breathing. Patient denies measured and/or subjective temperature greater than 100.4F. Patient denies travel on a cruise ship or to a country the [facility] currently lists as an affected area. Patient denies contact with known and/or suspected case of COVID-19. Ebola Screen: Patient negative for fever greater than or equal to 101.5 degrees Fahrenheit, and additional compatible Ebola Virus Disease symptoms Patient denies exposure to infectious person. Patient denies travel to an Ebola-affected area in the 21 days before illness onset. Initial Sepsis Screen: Does the patient meet any 2 criteria? No. Patient's initial sepsis screen is negative. Does the patient have a suspected source of infection? No. Patient's initial sepsis screen is negative. Risk Assessment: Do you want to hurt yourself or someone else? Patient reports no desire to harm self or others. Onset of symptoms was February 08, 2020. 06:53 Method Of Arrival: Ambulatory rr5 06:53 Acuity: JAYMIE 4 rr5 Triage Assessment: 06:56 General: Appears in no apparent distress. comfortable, Behavior is calm, cooperative, rr5 appropriate for age. Pain: Denies pain. Neuro: Level of Consciousness is awake, alert, obeys commands, Oriented to person, place, time, situation. Cardiovascular: Capillary refill < 3 seconds Patient's skin is warm and dry. Respiratory: Airway is patent Respiratory effort is even, unlabored, Respiratory pattern is regular, symmetrical. 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 - Social history:: Smoking status: Reported history of juuling and/or vaping. Patient uses alcohol, occasionally. Patient/guardian denies using street drugs. Screenin:56 Abuse screen: Denies threats or abuse. Denies injuries from another. Nutritional rr5 screening: No deficits noted. Tuberculosis screening: No symptoms or risk factors identified. Fall Risk None identified. Total Hunt Fall Scale indicates No Risk (0-24 pts). Assessment: 06:53 General: Appears in no apparent distress. comfortable, Behavior is calm, cooperative, rr5 appropriate for age. 06:53 Pain: Denies pain. Neuro: Level of Consciousness is awake, alert, obeys commands, rr5 Oriented to person, place, time, situation. Cardiovascular: Capillary refill < 3 seconds Patient's skin is warm and dry. Respiratory: Reports cough that is dry, stuffynose Airway is patent Respiratory effort is even, unlabored, Respiratory pattern is regular, symmetrical. GI: No signs and/or symptoms were reported involving the gastrointestinal system. : No signs and/or symptoms were reported regarding the genitourinary system. EENT: No signs and/or symptoms were reported regarding the EENT system. Derm: Skin is intact, is healthy with good turgor, Skin temperature is warm. Musculoskeletal: Circulation, motion, and sensation intact. Capillary refill < 3 seconds. 07:10 Reassessment: Patient appears in no apparent distress at this time. Patient is alert, rr5 oriented x 3, equal unlabored respirations, skin warm/dry/pink. discharge instruction given and explained without complaints made. Vital Signs: 06:53 BP 125 / 94; Pulse 100; Resp 20; Temp 97.8; Pulse Ox 100% ; Weight 58.97 kg; Height 5 rr5 ft. 0 in. (152.40 cm); Pain 0/10; 07:10 BP 113 / 75; Pulse 98; Resp 19; Pulse Ox 98% on R/A; rr5 06:53 Body Mass Index 25.39 (58.97 kg, 152.40 cm) rr5 ED Course: 06:41 Patient arrived in ED. ds1 06:45 Raciel Ortez MD is Attending Physician. carol 06:45 Jorge Luis Anderson PA is PHCP. jr8 06:55 Triage completed. rr5 06:56 Arm band placed on right wrist. rr5 06:56 Patient has correct armband on for positive identification. Bed in low position. Call rr5 light in reach. 06:56 No provider procedures requiring assistance completed. rr5 07:10 Patient did not have IV access during this emergency room visit. rr5 07:11 Rao Edwards, RN is Primary Nurse. rr5 Administered Medications: No medications were administered Outcome: 07:01 Discharge ordered by . carol 07:10 Discharged to home ambulatory. rr5 07:10 Condition: stable 07:10 Discharge instructions given to patient, Instructed on discharge instructions, follow up and referral plans. medication usage, Demonstrated understanding of instructions, follow-up care, medications, Prescriptions given X 1. 07:14 Patient left the ED. rr5 Signatures: Raciel Ortez MD MD cha Sanford, Demi ds1 Jorge Luis Anderson PA PA jr8 Rao Edwards, RN RN rr5
--- NOTE | 2020-02-10 07:01 | EDPHYS ---
Physician Documentation [facility] Name: Damaris Roque Age: 24 yrs Sex: Female : 1995 Arrival Date: 02/10/2020 Time: 06:41 Bed 7 Private MD: ED Physician Raciel Ortez HPI: 02/09 06:58 This 24 yrs old Female presents to ER via Ambulatory with complaints of carol Cough, Runny Nose. 06:58 The patient or guardian reports cough, described as mild. Onset: The symptoms/episode carol began/occurred 2 day(s) ago. Severity of symptoms: At their worst the symptoms were very mild, in the emergency department the symptoms are unchanged. Modifying factors: The symptoms are alleviated by nothing, the symptoms are aggravated by nothing. Associated signs and symptoms: The patient has no apparent associated signs or symptoms. The patient has experienced similar episodes in the past, several times. 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 - Social history:: Smoking status: Reported history of juuling and/or vaping. Patient uses alcohol, occasionally. Patient/guardian denies using street drugs. ROS: 06:59 Constitutional: Negative for fever, chills, and weight loss, Eyes: Negative for injury, carol pain, redness, and discharge, Neck: Negative for injury, pain, and swelling, Cardiovascular: Negative for chest pain, palpitations, and edema, Respiratory: Negative for shortness of breath, cough, wheezing, and pleuritic chest pain, Abdomen/GI: Negative for abdominal pain, nausea, vomiting, diarrhea, and constipation, Back: Negative for injury and pain, : Negative for injury, bleeding, discharge, and swelling, MS/Extremity: Negative for injury and deformity, Skin: Negative for injury, rash, and discoloration, Neuro: Negative for headache, weakness, numbness, tingling, and seizure, Psych: Negative for depression, anxiety, suicide ideation, homicidal ideation, and hallucinations, Allergy/Immunology: Negative for hives, rash, and allergies, Endocrine: Negative for neck swelling, polydipsia, polyuria, polyphagia, and marked weight changes, Hematologic/Lymphatic: Negative for swollen nodes, abnormal bleeding, and unusual bruising. 06:59 ENT: Positive for rhinorrhea, sinus congestion. 06:59 Respiratory: Positive for dyspnea on exertion. Exam: 06:59 Constitutional: This is a well developed, well nourished patient who is awake, alert, carol and in no acute distress. Head/Face: Normocephalic, atraumatic. Eyes: Pupils equal round and reactive to light, extra-ocular motions intact. Lids and lashes normal. Conjunctiva and sclera are non-icteric and not injected. Cornea within normal limits. Periorbital areas with no swelling, redness, or edema. Neck: Trachea midline, no thyromegaly or masses palpated, and no cervical lymphadenopathy. Supple, full range of motion without nuchal rigidity, or vertebral point tenderness. No Meningismus. Chest/axilla: Normal chest wall appearance and motion. Nontender with no deformity. No lesions are appreciated. Cardiovascular: Regular rate and rhythm with a normal S1 and S2. No gallops, murmurs, or rubs. Normal PMI, no JVD. No pulse deficits. Respiratory: Lungs have equal breath sounds bilaterally, clear to auscultation and percussion. No rales, rhonchi or wheezes noted. No increased work of breathing, no retractions or nasal flaring. Abdomen/GI: Soft, non-tender, with normal bowel sounds. No distension or tympany. No guarding or rebound. No evidence of tenderness throughout. Back: No spinal tenderness. No costovertebral tenderness. Full range of motion. Skin: Warm, dry with normal turgor. Normal color with no rashes, no lesions, and no evidence of cellulitis. MS/ Extremity: Pulses equal, no cyanosis. Neurovascular intact. Full, normal range of motion. Neuro: Awake and alert, GCS 15, oriented to person, place, time, and situation. Cranial nerves II-XII grossly intact. Motor strength 5/5 in all extremities. Sensory grossly intact. Cerebellar exam normal. Normal gait. Psych: Awake, alert, with orientation to person, place and time. Behavior, mood, and affect are within normal limits. Vital Signs: 06:53 BP 125 / 94; Pulse 100; Resp 20; Temp 97.8; Pulse Ox 100% ; Weight 58.97 kg; Height 5 rr5 ft. 0 in. (152.40 cm); Pain 0/10; 07:10 BP 113 / 75; Pulse 98; Resp 19; Pulse Ox 98% on R/A; rr5 06:53 Body Mass Index 25.39 (58.97 kg, 152.40 cm) rr5 MDM: 06:45 Patient medically screened. [facility] 07:00 Data reviewed: vital signs, nurses notes. [facility] 16:54 Data interpreted: Pulse oximetry: on room air is 98 %. Interpretation: normal. jr8 Counseling: I had a detailed discussion with the patient and/or guardian regarding: the historical points, exam findings, and any diagnostic results supporting the discharge/admit diagnosis, the need for outpatient follow up, a family practitioner, to return to the emergency department if symptoms worsen or persist or if there are any questions or concerns that arise at home. Administered Medications: No medications were administered Disposition: 02/10/20 07:01 Discharged to Home. Impression: Acute upper respiratory infection, unspecified, Cough. - Condition is Stable. - Discharge Instructions: Upper Respiratory Infection, Adult, Cool Mist Vaporizer, Cough, Adult, [id number]. - Prescriptions for Francisca- D 12 Hour 60-120 mg Oral Tablet Sustained Release 12 hr - take 1 tablet by ORAL route every 12 hours As needed; 20 tablet. - Medication Reconciliation Form, Thank You Letter, Antibiotic Education, Prescription Opioid Use, Work release form form. - Follow up: Private Physician; When: 2 - 3 days; Reason: Recheck today's complaints, Continuance of care, Re-evaluation by your physician. - Problem is new. - Symptoms have improved. Addendum: 02/11/2020 08:24 Co-signature as Attending Physician, Raciel Ortez MD I agree with the assessment and c chris plan of care. Signatures: Raciel Ortez MD MD cha Roszak, Josh, PA PA jr8 Rao Edwards, RN RN rr5 Corrections: (The following items were deleted from the chart) 02/09 07:14 07:01 02/10/2020 07:01 Discharged to Home. Impression: Acute upper respiratory rr5 infection, unspecified; Cough. Condition is Stable. Forms are Medication Reconciliation Form, Thank You Letter, Antibiotic Education, Prescription Opioid Use. Follow up: Private Physician; When: 2 - 3 days; Reason: Recheck today's complaints, Continuance of care, Re-evaluation by your physician. Problem is new. Symptoms have improved. carol
[2020-02-10 07:21] VITALS: TEMP 97.8
[2020-02-10 07:23] VITALS: BP 113/75; O2SAT 98
== END 2020-02-10 07:14 | disposition home or self-care (01) ==
LOC: ER 06:41
DX: J06.9 Acute upper respiratory infection, unspecified (principal); R05 Cough; F17.290 Nicotine dependence, other tobacco product, uncomplicated
CPT/HCPCS: 99282

== ENCOUNTER → 2023-12-24 | Emergency (ER) | payer SELFPAY ==
[2023-12-24 17:38] LABS: SARS-CoV-2 Antigen Rapid Res Negative (Negative)
--- NOTE | 2023-12-24 17:41 | RAD REPORT ---
EXAM DESCRIPTION: RAD - Chest Pa And Lat (2 Views) - 12/24/2023 5:20 pm CLINICAL HISTORY: Cough;Congestion COMPARISON: CHEST PA AND LAT 2 VIEW dated 07/07/2011 FINDINGS: Lines: None. Lungs: No evidence of edema or pneumonia. Suspect azygos fissure, a normal variant. Pleural: No significant pleural effusions or pneumothorax. Cardiac: The heart size is within normal limits. Mediastinum: Within normal limits. Bones: No acute fractures. Other: None IMPRESSION: No acute cardiopulmonary disease.
--- NOTE | 2023-12-24 17:45 | ER ---
Nurse's Notes [facility] Name: Damaris Roque Age: 28 yrs Sex: Female : 1995 Arrival Date: 12/24/2023 Time: 16:27 Bed IW2 Private MD: Diagnosis: Acute upper respiratory infection, unspecified Presentation: 12/24 17:19 Chief complaint: Patient states: cough X 3 weeks, also has chills and body aches, her iw had COVID but her test was negative. Coronavirus screen: Client presents with at least one sign or symptom that may indicate coronavirus-19. Ebola Screen: Patient negative for fever greater than or equal to 101.5 degrees Fahrenheit, and additional compatible Ebola Virus Disease symptoms Patient denies exposure to infectious person. Patient denies travel to an Ebola-affected area in the 21 days before illness onset. No symptoms or risks identified at this time. Initial Sepsis Screen: Does the patient meet any 2 criteria? No. Patient's initial sepsis screen is negative. Does the patient have a suspected source of infection? No. Patient's initial sepsis screen is negative. Risk Assessment: Do you want to hurt yourself or someone else? Patient reports no desire to harm self or others. Onset of symptoms was December 02, 2023. 17:19 Method Of Arrival: Ambulatory 17:19 Acuity: JAYMIE 4 iw Historical: - Allergies: 17:20 No Known Allergies; iw - Home Meds: 17:20 None [Active]; iw - PMHx: 17:20 None; iw - Immunization history:: Adult Immunizations up to date. - Social history:: Smoking status: Patient denies any tobacco usage or history of. Screenin:03 [facility] ED Fall Risk Assessment (Adult) Score/Fall Risk Level 0 - 2 = Low Risk. Abuse as6 screen: Denies threats or abuse. Denies injuries from another. Nutritional screening: No deficits noted. Tuberculosis screening: No symptoms or risk factors identified. Assessment: 18:03 General: Appears in no apparent distress. Behavior is calm, cooperative. Pain: as6 Complains of pain in sinus. Respiratory: Reports cough that is Respiratory effort is even, unlabored, Respiratory pattern is regular, symmetrical. EENT: Reports nasal congestion. Vital Signs: 17:19 BP 131 / 87; Pulse 105; Resp 18; Temp 98.8; Pulse Ox 99% on R/A; iw ED Course: 16:31 Patient arrived in ED. mg5 16:36 Kiya Curry PA-C [facility]. sb4 16:36 Raciel Ortez MD is Attending Physician. sb4 17:20 Triage completed. iw 17:21 Chest Pa And Lat (2 Views) XRAY In Process Unspecified. EDMS 17:21 Arm band placed on. iw 17:21 Flu Sent. iw 17:21 SARS RAPID Sent. iw 18:03 Bed in low position. Call light in reach. Provided Education on: abx teaching. as6 18:03 No provider procedures requiring assistance completed. Patient did not have IV access as6 during this emergency room visit. Administered Medications: No medications were administered Medication: 18:03 VIS not applicable for this client. as6 Outcome: 17:44 Discharge ordered by . sb4 18:03 Discharged to home ambulatory, as6 18:03 Condition: stable 18:03 Discharge instructions given to patient, Instructed on discharge instructions, follow up and referral plans. medication usage, Demonstrated understanding of instructions, follow-up care, medications, Prescriptions given X 2, 18:04 Patient left the ED. as6 Signatures: Dispatcher [employer] Helen Watts, RN [facility] Esteban Dennison RN RN as6 Kiya Curry PA-C PA-C sbLeslie Whittaker mg5
--- NOTE | 2023-12-24 17:45 | EDPHYS ---
Physician Documentation [facility] Name: Damaris Roque Age: 28 yrs Sex: Female : 1995 Arrival Date: 12/24/2023 Time: 16:27 Bed IW2 Private MD: ED Physician Raciel Ortez HPI: 12/24 17:09 This 28 yrs old Female presents to ER via Unassigned with complaints of Cough. sb4 17:09 cough x 3 weeks with intermittent fatigue, sore throat, nasal congestion. family was sb4 sick with covid, her home covid test was negative. denies any fevers. cough is not productive. no history of asthma/copd/tobacco abuse. Historical: - Allergies: 17:20 No Known Allergies; iw - Home Meds: 17:20 None [Active]; iw - PMHx: 17:20 None; iw - Immunization history:: Adult Immunizations up to date. - Social history:: Smoking status: Patient denies any tobacco usage or history of. ROS: 17:09 Abdomen/GI: Negative for abdominal pain, nausea, vomiting, diarrhea, and constipation, sb4 17:09 Constitutional: Positive for malaise, 17:09 ENT: Positive for sinus congestion, 17:09 Respiratory: Positive for cough, 17:09 All other systems are negative, Exam: 17:09 Constitutional: This is a well developed, well nourished patient who is awake, alert, sb4 and in no acute distress. Head/Face: Normocephalic, atraumatic. Eyes: Extra-ocular motions intact. Periorbital areas with no swelling, redness, or edema. ENT: Mucous membranes moist. Cardiovascular: Regular rate and rhythm with a normal S1 and S2. Respiratory: Lungs have equal breath sounds bilaterally, clear to auscultation and percussion. No rales, rhonchi or wheezes noted. No increased work of breathing, no retractions or nasal flaring. Abdomen/GI: Soft, non-tender, no distension. Skin: Warm, dry with normal turgor. Normal color with no rashes, no lesions, and no evidence of cellulitis. MS/ Extremity: Pulses equal, no cyanosis. Neurovascular intact. Full, normal range of motion. Neuro: Awake and alert, GCS 15, oriented to person, place, time, and situation. Motor strength 5/5 in all extremities. Sensory grossly intact. Vital Signs: 17:19 BP 131 / 87; Pulse 105; Resp 18; Temp 98.8; Pulse Ox 99% on R/A; iw MDM: 17:09 Differential Diagnosis: Bronchitis Influenza Upper Respiratory Infection Viral Syndrome sb4 Pneumonia. 17:12 Patient medically screened. sb4 17:44 Data reviewed: vital signs, nurses notes, lab test result(s), radiologic studies, and sb4 as a result, I will discharge patient. Counseling: I had a detailed discussion with the patient and/or guardian regarding the historical points, exam findings, and any diagnostic results supporting the discharge/admit diagnosis, lab results, radiology results, to return to the emergency department if symptoms worsen or persist or if there are any questions or concerns that arise at home. 12/24 17:09 Order name: SARS RAPID; Complete Time: 17:43 sb4 12/24 17:09 Order name: Flu; Complete Time: 17:44 sb4 12/24 17:09 Order name: Chest Pa And Lat (2 Views) XRAY; Complete Time: 17:43 sb4 Administered Medications: No medications were administered Disposition Summary: 12/24/23 17:44 Discharge Ordered Notes: Location: Home sb4 Problem: an ongoing problem sb4 Symptoms: are unchanged sb4 Condition: Stable sb4 Diagnosis - Acute upper respiratory infection, unspecified sb4 Followup: sb4 - With: Emergency Department - When: As needed - Reason: Trouble breathing, Worsening of condition Discharge Instructions: - Discharge Summary Sheet sb4 - Upper Respiratory Infection, Adult, [id number] sb4 Forms: - Work release form as6 - Medication Reconciliation Form sb4 - Thank You Letter sb4 - Antibiotic Education sb4 - Prescription Opioid Use sb4 - Patient Portal Instructions sb4 - Leadership Thank You Letter sb4 Prescriptions: - azithromycin 250 mg Oral tablet - take 1 dose pack ORAL route as directed on dose pack For 250 mg dose pack: take sb4 500 mg today (day 1), then 250 mg for 4 days (days 2-5); 1 Pack; Refills: 0, Product Selection Permitted - Tessalon Perles 100 mg Oral Capsule - take 1 capsule ORAL route every 8 hours As needed; 15 capsule; Refills: 0, sb4 Product Selection Permitted Signatures: Dispatcher [employer] Helen Watts, RN RN iw Esteban Dennison, RN RN as6 Kiya Curry, CATALINA ARNOLD sb4
[2023-12-24 19:37] VITALS: BP 131/87; TEMP 98.8; O2SAT 99
== END ==
LOC: ER 16:27
DX: J06.9 Acute upper respiratory infection, unspecified (principal); Z11.52 Encounter for screening for COVID-19
CPT/HCPCS: 36415; 71046; 87804; 87811; 99283

== ENCOUNTER 2024-06-14 07:29 | Emergency (ER) | payer SELFPAY ==
[2024-06-14] MEDS ORDERED: NA CHLORIDE 0.9% 1,000 ML ONE (08:12)
[2024-06-14] MEDS ORDERED: ONDANSETRON 4 MG/2 ML VIAL ONE (08:12)
[2024-06-14 08:16] LABS: Absolute Lymphocytes (CBC) 0.3 K/uL (0.7-4.9); Absolute Monocytes 0.5 K/uL (0.1-1.3); Absolute Neutrophil 3.9 K/uL (1.8-8.0); Basophils % 0.4 % (0-1.3); Hematocrit 35.9 % (36.0-45.0); Hemoglobin 11.8 g/dL (12.0-15.0); Lymphocytes % 5.8 % (15.3-44.8); MCH 28.4 pg (27.0-35.0); MPV 7.3 fL (7.6-11.3); Monocytes % 10.6 % (3.3-12.3); Neutrophils % 82.2 % (41.7-73.7); Nucleated Red Blood Cells % 0.1 % (0-0); Platelets 185 thou/uL (152-406); RBC Red Blood Cell Count 4.17 M/uL (3.86-4.86); Red Cell Distribution Width 12.6 % (12.1-15.2)
[2024-06-14 08:30] LABS: Specific Gravity 1.021 (1.005-1.030); Sqamous Epithelial <5 /HPF (None Seen); Urine Bacteria None Seen /HPF (<20); Urine Bilirubin NEGATIVE (Negative); Urine Blood Negative (Negative); Urine Clarity Turbid (Clear); Urine Color Light-Yellow (Yellow); Urine Culture Reflex Order NOT NEEDED; Urine Glucose NEGATIVE (Negative); Urine Ketones NEGATIVE (Negative); Urine Microscopic Reflex YN ORDER UMIC; Urine Mucus Slight /HPF (None Seen); Urine Nitrite NEGATIVE (Negative); Urine Protein TRACE (Negative); Urine RBC None Seen /HPF (None Seen); Urine Urobilinogen Normal (Normal); Urine WBC <5 /HPF (<5); Urine pH 8.5 (5.0-7.0)
[2024-06-14 08:34] LABS: Albumin 3.6 g/dL (3.4-5.0); Bilirubin Total 0.2 mg/dL (0.2-1.0); Globulin 3.6 g/dL (2.3-3.5); Protein, Total 7.2 g/dL (6.4-8.2)
[2024-06-14 08:43] LABS: SARS-CoV-2 Antigen CONTROL BLUE LINE VIS/BG OK; SARS-CoV-2 Antigen Rapid Res Negative (Negative)
--- NOTE | 2024-06-14 09:37 | EDPHYS ---
Physician Documentation [facility] Name: Damaris Perez Age: 28 yrs Sex: Female : 1995 Arrival Date: 06/14/2024 Time: 07:29 Bed 12 Private MD: ED Physician Jalen Rockwell HPI: 06/14 09:33 This 28 yrs old Female presents to ER via Ambulatory with complaints of Flu Symptoms. rn 09:33 The patient reports fever, not measured (subjective). Onset: The symptoms/episode rn began/occurred 2 day(s) ago. Modifying factors: there are no obvious modifying factors. Associated signs and symptoms: Pertinent positives: chills, cough, diarrhea, nausea, vomiting. Severity of symptoms: At their worst the symptoms were mild in the emergency department the symptoms are unchanged. The patient has not experienced similar symptoms in the past. Patient reports flulike symptoms, has subjective fever and chills, associated with nausea and vomiting with diarrhea. Spouse has similar illness.. 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 - Infectious Disease History:: Denies. - Social history:: Smoking status: Reported history of juuling and/or vaping. - Family history:: not pertinent. - Hospitalizations: : No recent hospitalization is reported. ROS: 09:33 Constitutional: Positive for fever and chills Cardiovascular: Negative for chest pain, rn palpitations, and edema, Respiratory: Positive for cough, negative for shortness of breath Abdomen/GI: Positive for nausea and diarrhea MS/Extremity: Negative for injury and deformity, Neuro: Negative for weakness, numbness, tingling, and seizure, Exam: 09:33 Constitutional: This is a well developed, well nourished patient who is awake, alert, rn and in no acute distress. Head/Face: Normocephalic, atraumatic. Cardiovascular: Regular rate and rhythm. No pulse deficits. Respiratory: No increased work of breathing, no retractions or nasal flaring. Abdomen/GI: Soft, non-tender MS/ Extremity: Pulses equal, no cyanosis. Neurovascular intact. Full, normal range of motion. Equal circumference. Neuro: Awake and alert, GCS 15 Vital Signs: 07:55 BP 118 / 50; Pulse 96; Resp 18; Temp 98.8; Pulse Ox 98% on R/A; Weight 58.97 kg; Height ap3 5 ft. 0 in. ; 07:55 Body Mass Index 25.39 (58.97 kg, 152.4 cm) ap3 MDM: 07:34 Patient medically screened. rn 09:33 Differential diagnosis: viral Infection, bacterial infection, URI, UTI. Differential rn diagnosis: gastroenteritis. Data reviewed: vital signs, nurses notes, lab test result(s), and as a result, I will discharge patient. Counseling: I had a detailed discussion with the patient and/or guardian regarding the historical points, exam findings, and any diagnostic results supporting the discharge/admit diagnosis, lab results, the need for outpatient follow up, to return to the emergency department if symptoms worsen or persist or if there are any questions or concerns that arise at home. Special discussion: I discussed with the patient/guardian in detail that at this point there is no indication for admission to the hospital. It is understood, however, that if the symptoms persist or worsen the patient needs to return immediately for re-evaluation. 06/14 07:50 Order name: SARS RAPID; Complete Time: : rn 06/14 07:50 Order name: Flu; Complete Time: : rn 06/14 07:50 Order name: CBC with Diff; Complete Time: : rn 06/14 07:50 Order name: CMP; Complete Time: : rn 06/14 07:50 Order name: Lipase; Complete Time: : rn 06/14 07:50 Order name: Test, Urine; Complete Time: : rn 06/14 07:50 Order name: Urinalysis w/ reflexes; Complete Time: : rn 06/14 07:50 Order name: IV Start; Complete Time: 08:10 rn 06/14 07:50 Order name: Labs collected and sent; Complete Time: 08:10 rn Administered Medications: 08:18 Drug: NS 0.9% IV 1000 ml IV at 1 bolus Per protocol; 1000 mL bolus Route: IV; Rate: 1 ap3 bolus; Site: right antecubital; 08:18 Drug: Ondansetron IVP 4 mg IVP once; over 2 minutes Route: IVP; Site: right antecubital;ap3 Disposition Summary: 06/14/24 09:37 Discharge Ordered Notes: Location: Home rn Problem: new rn Symptoms: have improved rn Condition: Stable rn Diagnosis - Fever, unspecified rn - Vomiting, unspecified rn Followup: rn - With: Private Physician - When: As needed - Reason: Recheck today's complaints, Re-evaluation by your physician Discharge Instructions: - Discharge Summary Sheet rn - Fever, Adult rn - Nausea and Vomiting, Adult rn Forms: - Medication Reconciliation Form rn - Antibiotic negative turner - Prescription Opioid Use rn - Patient Portal Instructions rn - Leadership Thank You Letter rn - Work release form ap3 Prescriptions: - ondansetron 4 mg Oral Tablet,disintegrating - take 1 tablet ORAL route every 8 hours As needed; 12 tablet; Refills: 0, rn Product Selection Permitted - Augmentin 875-125 mg Oral Tablet - take 1 tablet ORAL route every 12 hours for 10 days; 20 tablet; Refills: 0, rn Product Selection Permitted - Zithromax Z-Rahul 250 mg Oral Tablet - take 1 tablet ORAL route as directed for 5 days Day 1 - take two (2) tablets rn one time. Day 2, 3, 4 , 5 take one (1) tablet once daily.; 6 tablet; Refills: 0, Product Selection Permitted Signatures: Dispatcher [employer] EDMS Jalen Rockwell MD MD rn Prokisch, Amanda RN RN ap3 Corrections: (The following items were deleted from the chart) 07:50 07:50 SARS-COV-2 Antigen Rapid+I.LAB.BRZ ordered. EDMS EDMS 07:50 07:50 Influenza Screen (A \T\ B)+BA.LAB.BRZ ordered. EDMS EDMS 07:50 07:50 CBC+H.LAB.BRZ ordered. EDMS EDMS 07:50 07:50 COMPREHENSIVE METABOLIC PANEL+C.LAB.BRZ ordered. EDMS EDMS 07:50 07:50 LIPASE+C.LAB.BRZ ordered. EDMS EDMS 07:50 07:50 Test, Urine+UC.LAB.BRZ ordered. EDMS EDMS 07:50 07:50 Urinalysis+U.LAB.BRZ ordered. EDMS EDMS
--- NOTE | 2024-06-14 09:37 | ER ---
Nurse's Notes [facility] Name: Damaris Perez Age: 28 yrs Sex: Female : 1995 Arrival Date: 06/14/2024 Time: 07:29 Bed 12 Private MD: Diagnosis: Fever, unspecified;Vomiting, unspecified Presentation: 06/14 07:55 Chief complaint: Patient states: she has been having flu-like symptoms since Wednesday ap3 06/11/24. patient reports sore throat, cough, fever, body aches, chills, fatigue, nausea, vomiting and diarrhea. Coronavirus screen: Client presents with at least one sign or symptom that may indicate coronavirus-19. Ebola Screen: No symptoms or risks identified at this time. Initial Sepsis Screen: Does the patient meet any 2 criteria? HR > 90 bpm. Does the patient have a suspected source of infection? No. Patient's initial sepsis screen is negative. Risk Assessment: Do you want to hurt yourself or someone else? Patient reports no desire to harm self or others. Onset of symptoms was June 11, 2024. 07:55 Method Of Arrival: Ambulatory ap3 07:55 Acuity: JAYMIE 3 ap3 Triage Assessment: 07:59 General: Appears ill, Behavior is calm, cooperative, appropriate for age. General: ap3 Reports chills for fever for feeling ill for fatigue for. Pain: Complains of pain in throat and generalized body aches. EENT: Reports pain when swallowing. Neuro: Level of Consciousness is awake, alert, obeys commands, Oriented to person, place, time, situation, Appropriate for age. Cardiovascular: Patient's skin is warm and dry. Respiratory: Airway is patent Respiratory effort is even, unlabored, Respiratory pattern is regular, symmetrical. GI: Reports diarrhea, nausea, vomiting, since 06/11/24. 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 - Infectious Disease History:: Denies. - Social history:: Smoking status: Reported history of juuling and/or vaping. - Family history:: not pertinent. - Hospitalizations: : No recent hospitalization is reported. Screenin:00 [facility] ED Fall Risk Assessment (Adult) History of falling in the last 3 months, ap3 including since admission No falls in past 3 months (0 pts) Confusion or Disorientation No (0 pts) Intoxicated or Sedated No (0 pts) Impaired Gait No (0 pts) Mobility Assist Device Used No (0 pt) Altered Elimination No (0 pt) Score/Fall Risk Level 0 - 2 = Low Risk Oriented to surroundings, Maintained a safe environment, Educated pt \T\ family on fall prevention, incl call for assistance when getting out of bed, Assessed \T\ reinforced patient's understanding of fall precautions, Hourly rounding (assess needs \T\ fall precautionary measures) done, Used ambulatory aids as needed (educated on \T\ assisted with), Used gait belt as appropriate. Abuse screen: Denies threats or abuse. Nutritional screening: No deficits noted. Tuberculosis screening: No symptoms or risk factors identified. Vital Signs: 07:55 BP 118 / 50; Pulse 96; Resp 18; Temp 98.8; Pulse Ox 98% on R/A; Weight 58.97 kg; Height ap3 5 ft. 0 in. ; 07:55 Body Mass Index 25.39 (58.97 kg, 152.4 cm) ap3 ED Course: 07:31 Patient arrived in ED. im 07:34 Jalen Rockwell MD is Attending Physician. rn 07:50 Yamilet Wood RN is Primary Nurse. ap3 07:58 Triage completed. ap3 08:00 Arm band placed on left wrist. ap3 08:00 Patient has correct armband on for positive identification. Bed in low position. Call ap3 light in reach. Side rails up X 1. Adult w/ patient. Pulse ox on. NIBP on. 08:10 Initial lab(s) drawn, COVID swab sent to lab. Flu and/or RSV swab sent to lab. Inserted ap3 saline lock: 20 gauge in right antecubital area, using aseptic technique. Blood collected. 08:11 Flu Sent. ap3 08:11 SARS RAPID Sent. ap3 08:11 CBC with Diff Sent. ap3 08:11 CMP Sent. ap3 08:11 Lipase Sent. ap3 09:47 No provider procedures requiring assistance completed. IV discontinued, intact, ap3 bleeding controlled, No redness/swelling at site. Pressure dressing applied. 09:48 Provided Education on: discharge instructions. ap3 Administered Medications: 08:18 Drug: NS 0.9% IV 1000 ml IV at 1 bolus Per protocol; 1000 mL bolus Route: IV; Rate: 1 ap3 bolus; Site: right antecubital; 08:18 Drug: Ondansetron IVP 4 mg IVP once; over 2 minutes Route: IVP; Site: right antecubital;ap3 Medication: 09:47 VIS not applicable for this client. ap3 Outcome: 09:37 Discharge ordered by . rn 09:47 Discharged to home ambulatory, ap3 09:47 Condition: good 09:47 Discharge instructions given to patient, Instructed on discharge instructions, follow up and referral plans. medication usage, Demonstrated understanding of instructions, follow-up care, medications, Prescriptions given X 3, 09:48 Patient left the ED. ap3 Signatures: Jalen Rockwell MD MD rn Prokisch, Amanda, RN RN ap3 Michela Stephen
[2024-06-14 12:54] VITALS: BP 118/50; TEMP 98.8; O2SAT 98
== END 2024-06-14 09:48 | disposition home or self-care (01) ==
LOC: ER 07:29
DX: R50.9 Fever, unspecified (principal); R11.10 Vomiting, unspecified; Z11.52 Encounter for screening for COVID-19
CPT/HCPCS: 36415; 80053; 81001; 81025; 83690; 85025; 87804; 87811; J2405; J7030